=== PATIENT | male | born 1955 | race Caucasian/White ===

== ENCOUNTER 2022-10-05 16:54 | Emergency (ER) | payer MEDICARE ==
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
[2022-10-05] MEDS ORDERED: FAMOTIDINE 20 MG/2 ML VIAL IV STA (17:24)
[2022-10-05] MEDS ORDERED: methylPREDNISolone SOD SUCCI 125 MG/2 ML VIAL IV STA (17:24)
[2022-10-05] MEDS ORDERED: ONDANSETRON 4 MG/2 ML VIAL IVP STA (18:12)
[2022-10-05 20:09] VITALS: BP 116/66; PULSE 79; RESP 16; TEMP 98.7
== END 2022-10-05 20:11 | disposition home or self-care (01) ==
LOC: EC 16:54
DX: T78.40XA Allergy, unspecified, initial encounter (principal); E11.9 Type 2 diabetes mellitus without complications; I10 Essential (primary) hypertension; Z88.6 Allergy status to analgesic agent; Z88.8 Allergy status to other drugs, medicaments and biological substances
CPT/HCPCS: 93005; 99284; 96374; 96375 ×2; J2930; J2405; J3490